=== PATIENT | male | born 1995 | race Caucasian/White ===

== ENCOUNTER 2020-09-05 19:13 | Emergency (ER) | payer OTHER ==
[~2020-09-05] VITALS: Ht 170.1 cm; Wt 72.6 kg
[~2020-09-05 19:13] MED LIST: BACTROBAN CREAM15 GM PO; KEFLEX500 MG PO; MOTRIN800 MG PO
[2020-09-05 20:06] LABS: BASO % 0.5 % (0.0-1.0); EOS # 0.3 10*3/uL (0.0-0.4); HEMATOCRIT 42.6 % (42.0-52.0); LYMPH # 2.9 10*3/uL (1.3-4.4); LYMPH % 36.6 % (27.0-41.0); MEAN CELL VOLUME 88.8 fl (80.0-94.0); MEAN CORPUSCULAR HGB 30.4 pg (27.0-31.0); MEAN CORPUSCULAR HGB CONC 34.3 g/dl (33.0-37.0); MEAN PLATELET VOLUME 10.1 fl (9.6-12.3); MONO # 0.5 10*3/uL (0.1-1.0); NEUT # 4.2 10*3/uL (2.3-7.9); NEUT % 52.8 % (47.0-73.0); PLATELET COUNT AUTOMATED 212 10*3/uL (130-400); RED CELL DISTRI WIDTH 11.2 % (0-14.5)
[2020-09-05 20:15] LABS: INTERNATIONAL NORM RATIO 1.1 (2.0-3.5)
[2020-09-05 20:30] LABS: ALBUMIN 3.9 gm/dl (3.1-4.5); ALKALINE PHOSPHATASE 53 U/L (45-117); BUN 19 mg/dl (7-24); CHLORIDE 106 mmol/L (98-107); CREATININE 1.17 mg/dL (0.70-1.30); POTASSIUM 4.2 mmol/L (3.5-5.1); SGOT/AST 28 IU/L (3-35); SGPT/ALT 35 U/L (12-78); SODIUM 141 mmol/L (136-145); TOTAL PROTEIN 7.2 gm/dL (6.4-8.2)
[2020-09-05 20:31] LABS: TROPONIN I < 0.015 ng/ml (<0.045)
== END 2020-09-05 21:30 | disposition home or self-care (01) ==
LOC: ED 19:13
PROVIDERS: Physician Assistant
DX: R07.89 Other chest pain (principal)

== ENCOUNTER → 2020-09-15 | Outpatient (CLI) | payer OTHER | END | disposition home or self-care (01) | LOC: COVID19 16:10 | PROVIDERS: ATTEND Internal Medicine | DX: U07.1 COVID-19 (principal) ==